=== PATIENT | male | born 1940 ===

== ENCOUNTER 2016-10-12 11:09 | Emergency (ER) | payer MEDICARE, MEDICAID ==
[2016-10-12 11:09] VITALS: BMI 31.6
--- NOTE | 2016-10-12 12:25 | ED PDOC ---
Arrival/HPI - General Chief Complaint: Trauma Time Seen by Provider: 10/12/16 12:17 Historian: Hand Buffer (Daughter functioning as ham sawyer, as per patient request. Patient refusing offical ham sawyer. ) - History of Present Illness Narrative History of Present Illness (Text): 10/12/16 12:06 A 75 year old Georgian speaking male presents to the emergency department, accompanied by daughter, complaining of right lower back pain since this morning. Patient reports he went to take a shower this morning at 12:45AM and while sitting on a shower chair he tilted over and fell. Patient did not hit his head or loss consciousness but he did hit his left lower back against the bathtub. He denies any neck pain, hip pain, or any other complaints at this time. Patient is currently on Plavix. PMD: Dr. Olivo Time/Duration: Other Symptom Onset: Sudden Symptom Course: Unchanged Quality: Other Activities at Onset: Light Context: Sitting, Home Past Medical History - Provider Review Nursing Documentation Reviewed: Yes - Infectious Disease Hx of Infectious Diseases: None - Tetanus Immunization Tetanus Immunization: Unknown - Cardiac Hx Hypertension: Yes - Psychiatric Hx Depression: No Hx Emotional Abuse: No Hx Physical Abuse: No Hx Substance Use: No - Surgical History Hx Cardiac Catheterization: Yes Hx Coronary Stent: Yes - Anesthesia Hx Anesthesia: No Hx Anesthesia Reactions: No Hx Malignant Hyperthermia: No - Suicidal Assessment Feels Threatened In Home Enviroment: No Family/Social History - Physician Review Nursing Documentation Reviewed: Yes Family/Social History: Unknown Family HX Smoking Status: Never Smoked Hx Alcohol Use: No Hx Substance Use: No Hx Substance Use Treatment: No Allergies/Home Meds Allergies/Adverse Reactions: Allergies No Known Allergies Allergy (Verified 06/18/13 11:34) Home Medications: Home Meds Medication Instructions Recorded Confirmed Clopidogrel Hydrogen Sulfate 75 mg PO DAILY 06/18/13 10/12/16 [Plavix] Levothyroxine [Synthroid] 0.112 mg PO DAILY 06/18/13 10/12/16 Metformin Hydrochloride [Metformin] 500 mg PO BID 06/18/13 10/12/16 Metoprolol Tartrate 25 mg PO DAILY 06/18/13 10/12/16 Omeprazole 40 mg PO DAILY 06/18/13 10/12/16 Valsartan [Diovan] 160 mg PO DAILY 06/18/13 10/12/16 clonazePAM [clonAZEPAM] 0.5 mg PO DAILY 06/18/13 10/12/16 Aspirin [Ecotrin] 10/12/16 Hydrochlorothiazide [Microzide] 12.5 mg PO 10/12/16 Physical Exam - Physical Exam Narrative Physical Exam (Text): - Review of Systems Constitutional: Normal. absent: Fatigue, Weight Change, Fevers Eyes: Normal ENT: Normal Respiratory: Normal absent: SOB, Cough, Sputum Cardiovascular: Normal absent: Chest pain, Palpitations, Syncope Gastrointestinal: Normal absent: Abdominal pain, Diarrhea, Nausea, Vomiting Genitourinary: Normal. absent: Dysuria, Frequency, Hematuria Musculoskeletal: Back Pain. absent: Arthralgias, Neck Pain Skin: Normal Neurological: Normal absent: Focal Weakness Endocrine: Normal Hemo/Lymphatic: Normal Psychiatric: Normal - Physical exam Head atraumatic. No nasal bone deformity or tenderness, no facial or jaw pain/ swelling. No neck midline tenderness, thoracic and lumbar spine with no midline tenderness. Mild tenderness with palpation to the right paralumbar region. Pt moving b/l upper and lower extremities without difficulty, 5/5 strength, with full active and passive ROM. Distal neurovasc fully intact. Abd soft/nt/ng, no hematomas, no peritoneal signs. Neg. pelvic rock. Physical exam Patient appears age appropriate in no distress, speaking full sentences without difficulty - Systems Exam Head: Present: Atraumatic, Normocephalic Pupils: Present: PERRL Extroacular Muscles: Present: EOMI Conjunctiva: Present: Normal Mouth: Present: Moist Mucous Membranes Neck: Present: Normal Range of Motion. No: MIDLINE TENDERNESS, Paraspinal Tenderness Respiratory/Chest: Present: Clear to Auscultation, Good Air Exchange. No: Respiratory Distress, Accessory Muscle Use, Tachypneic Cardiovascular: Present: Regular Rate and Rhythm, Normal S1, S2, Peripheal Pulses Present. No: Murmurs Abdomen: Present: Normal Bowel Sounds. No: Tenderness, Distention, Peritoneal Signs, Rebound, Guarding Back: Present: No: Midline Tenderness Upper Extremity: Present: Normal Inspection. No: Cyanosis, Edema Lower Extremity: Present: Normal Inspection. No: Edema Neurological: Present: GCS=15, Speech Normal, cranial nerves II through XII fully intact with no cerebellar abnormality, neurosensory fully intact. No focal neurological deficits. Skin: Present: Warm, Dry, Normal Color. No: Rashes Lymphatic: Present: OX3, NI, NC Psychiatric: Present: Alert, Oriented x 3, Normal Insight, Normal Concentration Vital Signs Reviewed: Yes Vital Signs Temp Pulse Resp BP Pulse Ox 10/12/16 12:53 54 L 18 168/79 H 97 10/12/16 11:40 98.2 F 51 L 18 171/84 H 98 Temperature: Afebrile Blood Pressure: Hypertensive Pulse: Regular Respiratory Rate: Normal Appearance: Positive for: Well-Appearing, Non-Toxic, Comfortable Pain Distress: None Mental Status: Positive for: Alert and Oriented X 3 Medical Decision Making ED Course and Treatment: 10/12/16 12:06 Impression: A 75 year old male with left lower back pain after a mechanical fall. On physical examination, the patient has mild tenderness with palpation to the right paralumbar spine. Differential Diagnosis include but are not limited to: Fractures vs. Sprain Plan: -- Head CT -- Lumbar Spine CT -- Tylenol -- Reassess and disposition Progress Notes: 10/12/16 12:[address]: Creator : Nasir Cagle MD IMPRESSION: Normal CT of the Head. 10/12/16 13:[address]: Creator : Beverly Quezada IMPRESSION: Slightly displaced fractures at the right transverse process of T12 , L1 and L2. Moderate degenerative disc changes. Multilevel small osteophyte disc bulging complex more prominent at L4-L5 associated with mild spinal and neural foraminal narrowing as described. 10/12/16 13:12 Will attempt came to the patient at this time 10/12/16 13:48 pt ambulated 2 labs around the ER without assistance pt and daughter state they feel comfortable being dc'd home at this time daughter states she will stay with dad for the next few days I recommended f/u with PMD outpatient and pain meds Pt states he understands to return to the ER right away for new or worsening symptoms or for inability to f/u with PMD or specialist as instructed. Patient states that he fully agrees with and understands discharge instructions. States that he agrees with the plan and disposition. Verbalized and repeated discharge instructions and plan. I have given the patient opportunity to ask any additional questions. 10/12/16 14:[address] Olivo, agrees with dc home and outpatient f/u - RAD Interpretation Radiology Orders: 10/12/16 12:17 HEAD W/O CONTRAST [CT] Stat 10/12/16 12:18 LUMBAR SPINE W/O CONTRAST [CT] Stat - Medication Orders Current Medication Orders: Discontinued Medications Acetaminophen (Tylenol 325mg Tab) 975 mg PO STAT STA Stop: 10/12/16 12:19 Last Admin: 10/12/16 13:03 Dose: 975 mg - Scribe Statement The provider has reviewed the documentation as recorded by the Peribflorian Currie Provider Scribe Attestation: All medical record entries made by the Scribe were at my direction and personally dictated by me. I have reviewed the chart and agree that the record accurately reflects my personal performance of the history, physical exam, medical decision making, and the department course for this patient. I have also personally directed, reviewed, and agree with the discharge instructions and disposition. Disposition/Present on Arrival - Present on Arrival Any Indicators Present on Arrival: No History of DVT/PE: No History of Uncontrolled Diabetes: No Urinary Catheter: No History of Decub. Ulcer: No History Surgical Site Infection Following: None - Disposition Have Diagnosis and Disposition been Completed?: Yes Diagnosis: Fall Disposition: HOME/ ROUTINE Disposition Time: 13:52 Patient Plan: Discharge Patient Problems: Current Active Problems Problem Status Onset Fall Acute Condition: GOOD Discharge Instructions (ExitCare): Fall Prevention for Older Adults (ED), Fall Prevention (ED) Additional Instructions: PLEASE RETURN TO THE EMERGENCY DEPARTMENT FOR NEW OR WORSENING SYMPTOMS. RETURN RIGHT AWAY IF YOU CANNOT FOLLOW UP WITH YOUR PRIMARY CARE DOCTOR, CLINIC, OR SPECIALIST IN 1-2 DAYS. Prescriptions: Acetaminophen with Codeine [Tylenol with Codeine #3 Tablet] 1 each PO Q6 PRN # 12 tablet PRN Reason: Pain, Moderate (4-7) Referrals: Mathew Olivo MD [Primary Care Provider] - Follow up with primary
--- NOTE | 2016-10-12 12:48 | CT ---
PROCEDURE: CT HEAD WITHOUT CONTRAST. HISTORY: fall COMPARISON: None available. TECHNIQUE: Axial computed tomography images were obtained through the head/brain without intravenous contrast. Radiation dose: Total exam DLP = 711 mGy-cm. This CT exam was performed using one or more of the following dose reduction techniques: Automated exposure control, adjustment of the mA and/or kV according to patient size, and/or use of iterative reconstruction technique. FINDINGS: HEMORRHAGE: No intracranial hemorrhage. BRAIN: No mass effect or edema. No atrophy or chronic microvascular ischemic changes. VENTRICLES: Unremarkable. No hydrocephalus. CALVARIUM: Unremarkable. PARANASAL SINUSES: Unremarkable as visualized. No significant inflammatory changes. MASTOID AIR CELLS: Unremarkable as visualized. No inflammatory changes. OTHER FINDINGS: None. IMPRESSION: Normal CT of the Head.
[2016-10-12 12:54] VITALS: O2SAT 97
--- NOTE | 2016-10-12 13:00 | CT ---
PROCEDURE: CT Lumbar Spine without contrast HISTORY: fall, back pain COMPARISON: None. TECHNIQUE: Axial computed tomography images were obtained of the lumbar spine without the use of intravenous contrast. Coronal and sagittal reformatted images were created and reviewed. Radiation dose: Total exam DLP = 787.31 mGy-cm. This CT exam was performed using one or more of the following dose reduction techniques: Automated exposure control, adjustment of the mA and/or kV according to patient size, and/or use of iterative reconstruction technique. FINDINGS: VERTEBRAE: There are slightly displaced fractures at the right transverse process of T12, L1 and L2. No evidence of acute compression deformity in the lumbar vertebrae. DISCS/SPINAL CANAL/NEURAL FORAMINA: L1-2: Small disc bulging seen without evidence of significant spinal or neural foraminal narrowing L2-3: Small disc bulging seen associated with posterior ligament and facet joint hypertrophy which resulting in mild spinal stenosis. L3-4: Small to moderate-sized disc bulging seen associated with posterior ligament and facet joint hypertrophy which resulting in mild spinal and neural foraminal narrowing. L4-5: Osteophyte disc bulging complex associated with posterior ligament and facet joint hypertrophy which resulting in mild spinal and neural foraminal narrowing. L5-S1: Small disc herniation seen associated with mild posterior ligament and facet joint hypertrophy which resulting in mild spinal and left neural foraminal narrowing P PARASPINAL SOFT TISSUES: Unremarkable. OTHER FINDINGS: None. IMPRESSION: Slightly displaced fractures at the right transverse process of T12, L1 and L2. Moderate degenerative disc changes. Multilevel small osteophyte disc bulging complex more prominent at L4-L5 associated with mild spinal and neural foraminal narrowing as described.
[2016-10-12 14:24] VITALS: BP 134/74; PULSE 50; RESP 16
[2016-10-12 14:34] VITALS: TEMP 98.9
== END 2016-10-12 14:30 | disposition home or self-care (01) ==
LOC: ED 11:09
DX: Z04.3 Encounter for examination and observation following other accident (principal); W07.XXXA Fall from chair, initial encounter; Y93.E1 Activity, personal bathing and showering; Y92.002 Bathroom of unspecified non-institutional (private) residence as the place of occurrence of the external cause